=== PATIENT | female | born 1960 | race Caucasian/White ===

== ENCOUNTER → 2016-10-17 | Day surgery (SDC) | payer MEDICARE ==
[~2016-10-17] VITALS: Ht 162.6 cm; Wt 120.0 kg
[~2016-10-17] MED LIST: ADVA250A INH; ALPR0.5T3 PO; BACT800T5 PO; BUPIVACAINE HCL PF 0.5% 30 ML VIAL ONE; CALC1TAB87 PO; CHLORHEXIDINE GLUCONATE 2 % 1 PACK (2 CLOTHS) TOPICAL PRN; CHOL1CAP34 PO; CIPROFLOXACIN/DEXT 400 MG/200 ML IV ONE; CYCL1TAB29 PO; FAMOTIDINE 20 MG/2 ML VIAL ONE; FURO40TA PO; INSULIN HUMAN REGULAR 1,000 UNITS/10 ML VIAL SQ PRN; IPRASOL INH; LACTATED RINGER'S 1000 ML IV PRN; LIDOCAINE HCL 2% 50 ML VIAL ONE; METOPROLOL TARTRATE 25 MG TAB PO PRN; MIDAZOLAM HCL 2 MG/2 ML VIAL ONE; NEOMYCIN/POLYMYXIN 1 ML G.U. IRRIGANT IRRIGATION ONE; NORC5TAB PO; PHEN-414 PO; POTA10CA PO; POVIDONE IODINE 5% (ANTISEPSIS KIT) 4 APPLICATIONS EACH NARE PRN; PRED5TAB PO; PROPOFOL 200 MG/20 ML AMP IV ONE; RESP: ALBUTEROL 2.5 MG/IPRATROPIUM 0.5 MG NEB (SCH) ONE; SODIUM CHLORID 0.9% 500 ML IV PRN; THEO400T2 PO; VENTAER INH; VITA1CAP7 PO; VITA250T3 PO; VITATAB11 PO
[2016-10-17 11:53] LABS: AUTOMATED NEUTROPHIL # 5.9 TH/MM3 (1.8-7.7); BASOPHIL # 0.1 TH/MM3 (0-0.2); BASOPHIL % 0.8 % (0.0-2.0); EOSINOPHIL # 0.1 TH/MM3 (0-0.4); EOSINOPHIL % 1.7 % (0.0-4.0); HEMATOCRIT 42.8 % (35.0-46.0); HEMO FLAGS DIFF FINAL; LYMPHOCYTE # 2.2 TH/MM3 (1.0-4.8); MEAN CELL VOLUME 93.4 FL (80.0-100.0); MEAN CORPUSCULAR HEMOGLOBIN 30.7 PG (27.0-34.0); MEAN CORPUSCULAR HGB CONC 32.8 % (32.0-36.0); NEUT % 66.5 % (16.0-70.0); PLATELET COUNT 311 TH/MM3 (150-450); RED BLOOD COUNT 4.57 MIL/MM3 (4.00-5.30); RED CELL DISTRIBUTION WIDTH 13.1 % (11.6-17.2); WHITE BLOOD COUNT 8.8 TH/MM3 (4.0-11.0)
--- NOTE | 2016-10-17 13:19 | EKG ---
Date Performed: 10/17/2016 Time Performed: 10:57:59 PTAGE: 56 years EKG: Sinus rhythm NONSPECIFIC ST & T-WAVE ABNORMALITY BORDERLINE ECG NO PREVIOUS TRACING DOCTOR: Dmitriy Blankenship Interpretating Date/Time 10/17/2016 13:17:26
[2016-10-17 14:17] VITALS: BP 167/85; PULSE 61; RESP 20; TEMP 97.7; O2SAT 96
--- NOTE | 2016-10-19 14:59 | MP ---
cc: SAM LUCAS III, M.D. DATE OF SURGERY: 10/19/2016. PREOPERATIVE DIAGNOSIS: Right carpal tunnel syndrome. POSTOPERATIVE DIAGNOSIS: Right carpal tunnel syndrome. OPERATIVE PROCEDURE PERFORMED: Right open carpal tunnel release. SURGEON: Sam Lucas III, MD. DESCRIPTION OF THE PROCEDURE IN DETAIL: The patient was brought to the operating room and placed supine on the operating table. After the correct site and side of surgery were verified by members of each team in the room multiple times including the patient and myself and after adequate preoperative markings and preoperative written consent were verified by everyone and after adequate preoperative time-out was performed to everyone's satisfaction and after adequate IV sedation had been achieved, the right upper extremity was prepped and draped in the traditional sterile surgical fashion. A 50/50 mixture of 2% plain lidocaine and 0.5% plain Marcaine was infiltrated into the skin and subcutaneous tissue at the base of palm and into the carpal tunnel. The limb was exsanguinated with an Rudy wrap and a highly placed well-padded axillary tourniquet was inflated to 250 mmHg for total 10 minutes. A longitudinally oriented incision at the base of the palm was made and carried down through skin and subcutaneous tissue. The palmar fascia was retracted in opposite directions. The transverse carpal ligament was identified and divided in its entirety in its midline from its proximal-most to its distal-most extents completely releasing the carpal tunnel and all of its contents which were all in continuity. Exploration did not reveal any mass effect or other anatomic abnormalities. A liters worth of saline was performed and irrigated out the wound. The skin edges were reapproximated using running 4-0 nylon suture. The hand and arm were thoroughly cleansed and dried. Betadine and Adaptic dressings were applied atop the wound followed by a bulky soft dressing. The axillary tourniquet was released and the hand and all the fingers became immediately soft and warm and had brisk capillary refill of less than 2 seconds. A circumferential RUDY wrap and Sof-Rol were placed in the usual fashion. The patient was awakened from anesthesia and transported to the post-anesthesia care unit awake and in stable condition. At the end of the case, the sponge, needle and instrument counts were correct at the end of the case as reported by the nurses in the room. Sam MD CAMACHO Kay III /1:28 PM /2:46 PM
== END | disposition home or self-care (01) ==
LOC: HSDC 10:11
PROVIDERS: ATTEND Orthopaedic Surgery Hand Surgery
DX: G56.01 Carpal tunnel syndrome, right upper limb (principal); J44.9 Chronic obstructive pulmonary disease, unspecified; I10 Essential (primary) hypertension; K21.9 Gastro-esophageal reflux disease without esophagitis; M81.0 Age-related osteoporosis without current pathological fracture; E78.5 Hyperlipidemia, unspecified; Z01.818 Encounter for other preprocedural examination; Z01.810 Encounter for preprocedural cardiovascular examination
CPT/HCPCS: 01810; 64721; 85025; 93005; 94664; J0744; J2250; J7120